=== PATIENT | male | born 1965 | race American Indian/Alaskan Native ===

== ENCOUNTER 2018-01-08 13:33 | Outpatient (CLI) | payer MEDICARE ==
--- NOTE | 2018-01-08 15:54 | XRay Report ---
X-RAY BILATERAL HAND THREE VIEWS EACH: 01/08/18 CLINICAL: Bilateral hand pain. FINDINGS: Right: Mild osteopenia. No fracture or dislocation.Mild osteoarthritis at the basal joint of the thumb and radiocarpal joint. The distal radius and ulna are normal. Soft tissue calcifications and surgical clips on the volar aspect of the distal forearm. Mild soft tissue swelling of the index and middle fingers and the dorsum of the hand.No soft tissue air or foreign body. Left: Mild osteopenia. No fracture or dislocation.Mild osteoarthritis at the basal joint of the thumb and mild radiocarpal joint arthritis. Soft tissue calcification is in surgical clips on the volar aspect of the distal forearm. Moderate soft tissue swelling of the thumb, index and middle fingers and the dorsum of the hand. No soft tissue air or foreign body. IMPRESSION: Mild arthritis and moderate nonspecific soft tissue swelling.
== END 2018-01-08 13:34 | disposition home or self-care (01) ==
LOC: SPVIMAG 13:33
PROVIDERS: ATTEND Orthopaedic Surgery
DX: M19.041 Primary osteoarthritis, right hand (principal); M19.042 Primary osteoarthritis, left hand